=== PATIENT | male | born 1970 | race Caucasian/White ===

== ENCOUNTER 2021-03-01 13:10 | Inpatient (IN) | payer BC, OTHER ==
[~2021-03-01] VITALS: Ht 180.3 cm; Wt 90.7 kg
[~2021-03-01 13:10] MED LIST: BACTRIM DS TAB1 EACH PO; BACTROBAN OINT22 GM EXT; BUSPIRONE HCL15 MG PO; CEFEPIME 22 GM/100 M IV; CYCLOBENZAPRINE10 MG PO; ELIQUIS5 MG PO; GABAPENTIN600 MG PO; IBU800 MG PO; INDERAL TAB 2020 MG PO; LIBRIUM CAP 2525 MG PO; MINIPRESS CAP 11 MG PO; NAPROSYN500 MG PO; NEURONTIN 100100 MG PO; NEURONTIN600 MG PO; PROZAC20 MG PO; SEROQUEL200 MG PO; SUBOXONE 8 MG-1 EACH SL; TENORMIN 25 MG25 MG PO; TESSALON PERLE100 MG PO; VANCO-0.9%750 MG/150 IV; VENTOLIN HFA 66.7 GM INH; WELLBUTRIN 100100 MG PO; XANAX1 MG PO; XARELTO 10 MG T10 MG PO; ZITHROMAX500 MG PO
[2021-03-01 14:19] LABS: HEMOGLOBIN 9.6 gm/dl (14.0-17.5); RED BLOOD COUNT 4.17 M/UL (4.20-5.50); WHITE BLOOD COUNT 15.5 K/UL (4.5-11.0)
[2021-03-02] MEDS ORDERED: XARELTO2.5 MG PO (00:12)
[2021-03-02 05:05] LABS: HEMOGLOBIN 10.5 gm/dl (14.0-17.5); RED BLOOD COUNT 4.53 M/UL (4.20-5.50)
[2021-03-02 05:07] LABS: WHITE BLOOD COUNT 4.4 K/UL (4.5-11.0)
[2021-03-02 05:24] LABS: BUN/CREATININE RATIO 11 (0-10)
[2021-03-02 20:31] LABS: ACINETOBACTER BAUMANNII Not Detected (Negative); CANDIDA ALBICANS Not Detected (Negative); CANDIDA KRUSEI Not Detected (Negative); CANDIDA TROPICALIS Not Detected (Negative); ENTEROCOCCUS Not Detected (Negative); ESCHERICHIA COLI Not Detected (Negative); HAEMOPHILUS INFLUENZAE Not Detected (Negative); KLEBSIELLA OXYTOCA Not Detected (Negative); KLEBSIELLA PNEUMONIAE Not Detected (Negative); KPC-CARBAPENEM-RESISTANCE GENE Not Detected (Negative); PROTEUS Not Detected (Negative); PSEUDOMONAS AERUGINOSA Not Detected (Negative); SERRATIA MARCESANS Not Detected (Negative); STAPHYLOCOCCUS AUREUS Not Detected (Negative); STREP AGALACTIAE (GROUP B) Not Detected (Negative); STREP PYOGENES (GROUP A) Not Detected (Negative); STREPTOCOCCUS Not Detected (Negative); vanA/B (VANCOMYCIN RESIST GENE Not Detected (Negative)
[2021-03-02 22:03] LABS: STAPHYLOCOCCUS DETECTED (Negative); mecA (METHICILLIN RESIST GENE DETECTED (Negative)
[2021-03-03 05:04] LABS: BUN/CREATININE RATIO 13 (0-10)
[2021-03-03 05:47] LABS: HEMOGLOBIN 9.9 gm/dl (14.0-17.5); RED BLOOD COUNT 4.28 M/UL (4.20-5.50)
[2021-03-03 05:51] LABS: WHITE BLOOD COUNT 32.5 K/UL (4.5-11.0)
[2021-03-04 04:29] LABS: HEMOGLOBIN 9.1 gm/dl (14.0-17.5); RED BLOOD COUNT 4.06 M/UL (4.20-5.50)
[2021-03-04 04:32] LABS: WHITE BLOOD COUNT 32.6 K/UL (4.5-11.0)
[2021-03-04 04:44] LABS: BUN/CREATININE RATIO 20 (0-10)
[2021-03-04 12:14] LABS: ORGANISM ID Not indicated. (.); SPECIMEN SOURCE Urine (.); STREPTOCOCCUS PNEUMONIAE AG Negative (Negative)
[2021-03-05 05:25] LABS: BUN/CREATININE RATIO 27 (0-10)
[2021-03-05 13:56] LABS: HEMOGLOBIN 9.3 gm/dl (14.0-17.5); RED BLOOD COUNT 4.22 M/UL (4.20-5.50)
[2021-03-05 14:17] LABS: BUN/CREATININE RATIO 33 (0-10)
[2021-03-05 14:26] LABS: WHITE BLOOD COUNT 24.6 K/UL (4.5-11.0)
[2021-03-06 03:35] LABS: HEMOGLOBIN 9.1 gm/dl (14.0-17.5); RED BLOOD COUNT 4.17 M/UL (4.20-5.50); WHITE BLOOD COUNT 21.7 K/UL (4.5-11.0)
[2021-03-06 03:48] LABS: BUN/CREATININE RATIO 38 (0-10)
[2021-03-06 10:43] LABS: HEMOGLOBIN 9.3 gm/dl (14.0-17.5); RED BLOOD COUNT 4.04 M/UL (4.20-5.50); WHITE BLOOD COUNT 18.9 K/UL (4.5-11.0)
[2021-03-07 05:55] LABS: BUN/CREATININE RATIO 52 (0-10)
--- NOTE | 2021-03-07 12:07 | NUR ---
WHILE TRYING TO ADMINISTER 250 ML FREE WATER FLUSH PATIENT NOTED TO HAVE GURGLING SOUNDS FROM MOUTH. FLUSH STOPPED AND MOUTH SUCTIONED. OG TUBE PLACEMENT VERIFIED AGAIN VIA AUISCULTATION. NO RESIDUAL WAS NOTED PRIOR TO ADMINISTERING FLUSH. TUBE FEED PAUSED. MD NOTIFIED AND ABDOMINAL X-RAY OBTAINED PER ORDER. TUBE PLACEMENT ALSO VERIFIED VIA XRAY. TUBE FEEDING RESTARTED AT 10 ML PER HR, PER MD REQUEST. WILL CONTINUE TO MONITOR.
[2021-03-08 05:57] LABS: BUN/CREATININE RATIO 49 (0-10)
[2021-03-08 06:28] LABS: HEMOGLOBIN 9.4 gm/dl (14.0-17.5); RED BLOOD COUNT 4.17 M/UL (4.20-5.50); WHITE BLOOD COUNT 16.7 K/UL (4.5-11.0)
[2021-03-09 04:12] LABS: HEMOGLOBIN 9.5 gm/dl (14.0-17.5); RED BLOOD COUNT 4.17 M/UL (4.20-5.50); WHITE BLOOD COUNT 12.8 K/UL (4.5-11.0)
[2021-03-09 04:34] LABS: BUN/CREATININE RATIO 48 (0-10)
[2021-03-09 10:14] LABS: 7-AMINOCLONAZEPAM Negative (.); ALPRAZOLAM 87.2 ng/mL (.); BENZODIAZEPINES CONFIRM Positive (.); CHLORDIAZEPOXIDE 64 ng/mL (.); CLONAZEPAM Negative (.); DESALKYLFLURAZEPAM Negative (.); DESMETHYLCHLORDIAZEPOXIDE Negative (.); DESMETHYLDIAZEPAM 80 ng/mL (.); DIAZEPAM 23 ng/mL (.); FLURAZEPAM Negative (.); LORAZEPAM Negative (.); MIDAZOLAM 2164.7 ng/mL (.); OXAZEPAM Negative (.); TEMAZEPAM Negative (.); TRIAZOLAM Negative (.)
[2021-03-10 05:00] LABS: HEMOGLOBIN 9.3 gm/dl (14.0-17.5); RED BLOOD COUNT 4.08 M/UL (4.20-5.50); WHITE BLOOD COUNT 12.8 K/UL (4.5-11.0)
[2021-03-10 05:35] LABS: BUN/CREATININE RATIO 43 (0-10)
[2021-03-11 05:29] LABS: HEMOGLOBIN 9.2 gm/dl (14.0-17.5); RED BLOOD COUNT 3.95 M/UL (4.20-5.50); WHITE BLOOD COUNT 11.9 K/UL (4.5-11.0)
[2021-03-11 05:45] LABS: BUN/CREATININE RATIO 44 (0-10)
[2021-03-12 04:18] LABS: HEMOGLOBIN 10.2 gm/dl (14.0-17.5); WHITE BLOOD COUNT 12.5 K/UL (4.5-11.0)
[2021-03-12 04:26] LABS: RED BLOOD COUNT 4.46 M/UL (4.20-5.50)
[2021-03-12 04:42] LABS: BUN/CREATININE RATIO 41 (0-10)
--- NOTE | 2021-03-12 13:38 | NUR ---
PATIENT ABLE TO FOLLOW COMMANDS. NOTIFIED AND HE SAID TO PUT PATIENT ON CPAP. RESPIRATORY NOTIFIED.
--- NOTE | 2021-03-12 14:41 | NUR ---
PATIENT EXTUBATED AT 1430 BY CHIDI HEREDIA. PATIENT PLACED ON ARIVO 90%. VITALS ARE STABLE. PATIENT TOLERATED EXTUBATION WELL.
[2021-03-13 05:26] LABS: HEMOGLOBIN 11.1 gm/dl (14.0-17.5); RED BLOOD COUNT 4.76 M/UL (4.20-5.50); WHITE BLOOD COUNT 15.6 K/UL (4.5-11.0)
[2021-03-13 05:51] LABS: BUN/CREATININE RATIO 42 (0-10)
[2021-03-14 07:53] LABS: HEMOGLOBIN 10.9 gm/dl (14.0-17.5); RED BLOOD COUNT 4.84 M/UL (4.20-5.50)
[2021-03-14 08:03] LABS: BUN/CREATININE RATIO 33 (0-10)
[2021-03-14 08:51] LABS: WHITE BLOOD COUNT 19.9 K/UL (4.5-11.0)
[2021-03-15 05:15] LABS: HEMOGLOBIN 10.7 gm/dl (14.0-17.5); RED BLOOD COUNT 4.54 M/UL (4.20-5.50)
[2021-03-15 05:16] LABS: WHITE BLOOD COUNT 29.6 K/UL (4.5-11.0)
[2021-03-15 05:47] LABS: BUN/CREATININE RATIO 28 (0-10)
[2021-03-16 04:52] LABS: BUN/CREATININE RATIO 35 (0-10)
[2021-03-16 05:11] LABS: HEMOGLOBIN 14.5 gm/dl (14.0-17.5); RED BLOOD COUNT 5.92 M/UL (4.20-5.50)
[2021-03-16 05:12] LABS: WHITE BLOOD COUNT 32.3 K/UL (4.5-11.0)
[2021-03-16 11:08] LABS: ADENOVIRUS F 40/41 Not Detected (Negative); ASTROVIRUS Not Detected (Negative); CAMPYLOBACTER Not Detected (Negative); CRYPTOSPORIDIUM Not Detected (Negative); E.COLI 0157 Not Detected (Negative); ENTAMOEBA HISTOLYTICA Not Detected (Negative); ENTEROAGGREGATIVE E.COLI (EAEC Not Detected (Negative); ENTEROPATHOGENIC E.COLI (EPEC) Not Detected (Negative); ENTEROTOXIGENIC E.COLI (ETEC) Not Detected (Negative); GIARDIA LAMBLIA Not Detected (Negative); NOROVIRUS GI/GII Not Detected (Negative); PLESIOMONAS SHIGELLOIDES Not Detected (Negative); ROTOVIRUS A Not Detected (Negative); SALMONELLA Not Detected (Negative); SAPOVIRUS Not Detected (Negative); SHIG/ENTEROINVAS.ECOLI (EIEC) Not Detected (Negative); SHIGA-LIK TOX.PRO.E.COLI (STEC Not Detected (Negative); VIBRIO Not Detected (Negative); VIBRIO CHOLERAE Not Detected (Negative); YERSINIA ENTEROCOLITICA Not Detected (Negative)
[2021-03-16 15:11] LABS: CLOSTRIDIUM DIFFICILE TOX A/B DETECTED (Negative)
[2021-03-17 01:51] LABS: HEMOGLOBIN 10.3 gm/dl (14.0-17.5); RED BLOOD COUNT 4.37 M/UL (4.20-5.50)
[2021-03-17 01:55] LABS: BUN/CREATININE RATIO 31 (0-10)
--- NOTE | 2021-03-17 11:30 | NUR ---
PT REFUSED TO HAVE MRI DONE, EXPRESSED TO RN AND OPERATIONS MANAGER/COORDINATOR THAT HE DIDN'T WANT IT DONE THAT HE HAD ALREADY HAD ONE IN THE PAST, EXPLAINED TO PT THE DR WANTED IT DONE BECAUSE OF SEZIURES IN EARLY A.M. PT STILL REFUSED.
[2021-03-18 04:00] LABS: HEMOGLOBIN 9.7 gm/dl (14.0-17.5); RED BLOOD COUNT 3.99 M/UL (4.20-5.50); WHITE BLOOD COUNT 21.5 K/UL (4.5-11.0)
[2021-03-18 04:42] LABS: BUN/CREATININE RATIO 27 (0-10)
[2021-03-19 04:12] LABS: HEMOGLOBIN 9.4 gm/dl (14.0-17.5); RED BLOOD COUNT 3.87 M/UL (4.20-5.50); WHITE BLOOD COUNT 21.2 K/UL (4.5-11.0)
[2021-03-19 04:32] LABS: BUN/CREATININE RATIO 34 (0-10)
[2021-03-20 03:42] LABS: HEMOGLOBIN 9.3 gm/dl (14.0-17.5); RED BLOOD COUNT 3.76 M/UL (4.20-5.50); WHITE BLOOD COUNT 16.6 K/UL (4.5-11.0)
[2021-03-20 04:07] LABS: BUN/CREATININE RATIO 30 (0-10)
[2021-03-21 03:13] LABS: HEMOGLOBIN 9.9 gm/dl (14.0-17.5); RED BLOOD COUNT 4.02 M/UL (4.20-5.50); WHITE BLOOD COUNT 14.1 K/UL (4.5-11.0)
[2021-03-21 03:41] LABS: BUN/CREATININE RATIO 26 (0-10)
[2021-03-22 03:55] LABS: WHITE BLOOD COUNT 12.7 K/UL (4.5-11.0)
[2021-03-22 04:10] LABS: RED BLOOD COUNT 4.48 M/UL (4.20-5.50)
[2021-03-22 04:20] LABS: BUN/CREATININE RATIO 24 (0-10)
[2021-03-23 07:58] LABS: WHITE BLOOD COUNT 12.5 K/UL (4.5-11.0)
[2021-03-23 08:09] LABS: HEMOGLOBIN 13.1 gm/dl (14.0-17.5); RED BLOOD COUNT 5.2 M/UL (4.20-5.50)
[2021-03-23 08:26] LABS: BUN/CREATININE RATIO 20 (0-10)
[2021-03-25 08:55] LABS: BUN/CREATININE RATIO 14 (0-10)
[2021-03-25 09:25] LABS: RED BLOOD COUNT 5.09 M/UL (4.20-5.50); WHITE BLOOD COUNT 13.1 K/UL (4.5-11.0)
--- NOTE | 2021-03-28 18:15 | NUR ---
PT NOTED BE LETHARGIC, DIFFICULTY TO AROUSE. VS WNL. MD NOTIFIED. NEW ORDERS NOTED.
[2021-03-29 06:23] LABS: HEMOGLOBIN 13.5 gm/dl (14.0-17.5); RED BLOOD COUNT 5.38 M/UL (4.20-5.50); WHITE BLOOD COUNT 8.6 K/UL (4.5-11.0)
[2021-03-29 07:06] LABS: BUN/CREATININE RATIO 13 (0-10)
[2021-03-30] MEDS ORDERED: VANCOMYCIN HCL250 MG PO (13:57)
[2021-03-30] MEDS ORDERED: VENTOLIN HFA 66.7 GM INH (13:57)
== END 2021-03-30 16:47 | disposition home or self-care (01) | DRG 870 ==
LOC: ER1 13:10 → M/S 17:28 → PROG CARE 17:28 → 2 EAST 17:28 → CCU 17:28 → CDU 17:28 → 2 EAST 21:11 → CCU 03-12 18:39 → PROG CARE 03-15 10:12 → M/S 03-23 21:04
PROVIDERS: Family Medicine; Internal Medicine; Internal Medicine Infectious Disease; Internal Medicine Pulmonary Disease; ADMIT Internal Medicine
PROC: 5A1955Z Respiratory Ventilation, Greater than 96 Consecutive Hours (ICD-10-PCS; 2021-03-01)
PROC: 5A09357 Assistance with Respiratory Ventilation, Less than 24 Consecutive Hours, Continuous Positive Airway Pressure (ICD-10-PCS; 2021-03-01)
PROC: 0BH17EZ Insertion of Endotracheal Airway into Trachea, Via Natural or Artificial Opening (ICD-10-PCS; 2021-03-01)
PROC: 02HV33Z Insertion of Infusion Device into Superior Vena Cava, Percutaneous Approach (ICD-10-PCS; 2021-03-01)
PROC: B548ZZA Ultrasonography of Superior Vena Cava, Guidance (ICD-10-PCS; 2021-03-01)
PROC: 8E0ZXY6 Isolation (ICD-10-PCS; 2021-03-01)
PROC: XW033E5 Introduction of Remdesivir Anti-infective into Peripheral Vein, Percutaneous Approach, New Technology Group 5 (ICD-10-PCS; principal; 2021-03-02)
PROC: 3E0333Z Introduction of Anti-inflammatory into Peripheral Vein, Percutaneous Approach (ICD-10-PCS; 2021-03-02)
PROC: 3E033XZ Introduction of Vasopressor into Peripheral Vein, Percutaneous Approach (ICD-10-PCS; 2021-03-02)
PROC: B24BZZ4 Ultrasonography of Heart with Aorta, Transesophageal (ICD-10-PCS; 2021-03-09)
PROC: 5A0945A Assistance with Respiratory Ventilation, 24-96 Consecutive Hours, High Flow/Velocity Cannula (ICD-10-PCS; 2021-03-13)
DX: A41.89 Other specified sepsis (principal); U07.1 COVID-19; J80 Acute respiratory distress syndrome; J15.9 Unspecified bacterial pneumonia; G93.41 Metabolic encephalopathy; J12.82 Pneumonia due to coronavirus disease 2019; A04.72 Enterocolitis due to Clostridium difficile, not specified as recurrent; J44.1 Chronic obstructive pulmonary disease with (acute) exacerbation; E87.0 Hyperosmolality and hypernatremia; N17.9 Acute kidney failure, unspecified; E87.8 Other disorders of electrolyte and fluid balance, not elsewhere classified; E87.70 Fluid overload, unspecified; E88.09 Other disorders of plasma-protein metabolism, not elsewhere classified; F32.9 Major depressive disorder, single episode, unspecified; R65.20 Severe sepsis without septic shock; R13.10 Dysphagia, unspecified; E87.6 Hypokalemia; K59.00 Constipation, unspecified; I12.9 Hypertensive chronic kidney disease with stage 1 through stage 4 chronic kidney disease, or unspecified chronic kidney disease; L89.896 Pressure-induced deep tissue damage of other site; N18.9 Chronic kidney disease, unspecified; E83.42 Hypomagnesemia; G40.909 Epilepsy, unspecified, not intractable, without status epilepticus; F41.9 Anxiety disorder, unspecified; R53.81 Other malaise; F17.210 Nicotine dependence, cigarettes, uncomplicated; B19.20 Unspecified viral hepatitis C without hepatic coma; Z91.14 Patient's other noncompliance with medication regimen; Z86.711 Personal history of pulmonary embolism; Z79.01 Long term (current) use of anticoagulants; Z93.0 Tracheostomy status; Z88.0 Allergy status to penicillin; Z79.82 Long term (current) use of aspirin; Z86.73 Personal history of transient ischemic attack (TIA), and cerebral infarction without residual deficits
CPT/HCPCS: ECHO; 31500; 36415; 36556; 36600; 70450; 71045; 74018; 80048; 80053; 80202; 80307; 81001; 82140; 82550; 82728; 82803; 82962; 83540; 83550; 83605; 83615; 83735; 83880; 84100; 84132; 84295; 85007; 85025; 85027; 85379; 85384; 85610; 85652; 86140; 87040; 87070; 87077; 87081; 87086; 87150; 87186; 87205; 87278; 87324; 87449; 87507; 87899; 92526; 92610; 93005; 93306; 93971; 94002; 94003; 94640; 94660; 94760; 97110; 97110-GP-CQ; 97116-GP-CQ; 97162; 97166; 97530; 97530-GP-CQ; 99285; A6212; G0378; J0330; J0692; J1100; J1120; J1205; J1756; J1940; J2060; J2185; J2250; J2405; J2543; J2704; J3010; J3360; J3370; J3480; J7030; J7050; J7070; P9047; Q0177; Q9965; U0002